=== PATIENT | female | born 1975 | race Native Hawaiian/Other Pacific Islander ===

== ENCOUNTER 2023-06-04 17:00 | Inpatient (IN) | payer OTHER ==
[2023-06-04] VITALS (8 sets, daily range): BP systolic 101–115; BP diastolic 53–66; PULSE 59–70; TEMP 97.6–98.4
[~2023-06-04] VITALS: Ht 175.3 cm; Wt 95.4 kg
[2023-06-04 18:26] LABS: BASO % 0.4 % (0.0-2.0); EOS # 0.1 K/mm3 (0.0-0.7); EOS % 2.5 % (0.0-4.0); LYMPH # 2.3 K/mm3 (1.2-3.4); LYMPH % 47.9 % (20.0-51.0); MEAN CELL VOLUME 57 fl (80.0-100.0); MEAN CORPUSCULAR HGB CONC 24 g/dl (33.0-37.0); MEAN PLATELET VOLUME 9.4 fl (7.4-10.4); MONO # 0.4 K/mm3 (0.1-0.6); PLATELET COUNT 399 K/mm3 (130-400); RED BLOOD COUNT 2.98 M/mm3 (4.10-5.30); REDCELL DISTRIBUTION WIDTH-CV 21.9 % (11.5-14.5)
[2023-06-04 18:30] LABS: MEAN CORPUSCULAR HEMOGLOBIN 13 pg (27-31)
[2023-06-04 19:11] LABS: ALBUMIN 3.5 g/dL (3.5-5.0); ALKALINE PHOSPHATASE 41 U/L (40-150); ANION GAP 7 mmol/L (7-16); AST,SGOT 14 U/L (5-34); BILIRUBIN,TOTAL 0.4 mg/dL (0.2-1.2); BLOOD UREA NITROGEN 9 mg/dL (7-19); CHLORIDE 111 mEq/L (98-107); CREATININE, serum 0.75 mg/dL (0.57-1.11); GLUCOSE 95 mg/dL (70-99); POTASSIUM 3.3 mEq/L (3.5-4.5); SODIUM 138 mEq/L (136-145); TOTAL PROTEIN 6.6 g/dl (6.2-8.1)
[2023-06-04 19:13] LABS: ALANINE AMINOTRANSFERASE < 6 U/L (0-55)
[2023-06-04 20:00] LABS: COLLECTION METHOD CLEAN CATCH
[2023-06-04] MEDS ORDERED: Acetaminophen 325 MG TAB PO PRN (20:00)
[2023-06-04] MEDS ORDERED: *Potassium Replacement Protocol MC SCH (20:00)
[2023-06-04] MEDS ORDERED: Potassium Bicarbonate/Citrate 20 MEQ Effervescent TAB PO SCH (20:00)
[2023-06-04 20:04] LABS: URINE APPEARANCE CLEAR (CLEAR/HAZY); URINE BLOOD NEGATIVE (NEGATIVE); URINE COLOR YELLOW (YELLOW); URINE GLUCOSE NEGATIVE (NEGATIVE); URINE KETONE NEGATIVE (NEGATIVE); URINE NITRATE NEGATIVE (NEGATIVE); URINE PROTEIN(semi-quant) NEGATIVE (NEGATIVE); URINE UROBILINOGEN 0.2 E.U/dL (0.2-1.0)
[2023-06-04] MEDS ORDERED: Ferrous Sulfate 325 MG TAB PO SCH (21:00)
[2023-06-05] VITALS (23 sets, daily range): BP systolic 94–128; BP diastolic 60–77; PULSE 55–70; TEMP 97.6–98.3
--- NOTE | 2023-06-05 00:32 | NUR ---
PT ARRIVED TO UNIT AROUND 2129 FROM ED, TRANSPORTED BY ED NURSE OBED WHO REPORTS HER TEMPURATURE WAS SLIGHTLY LOWERED FROM HER LAST SET OF VITALS. BLOOD GOING INFUSING IN L AC AT 125/HR. PT IS STABL WITH NO C/O PAIN, CHILLS, OR GARG . PT INITIALLY AT BEDSIDE FOR SUPPORT AND THEN WENT HOME TO BE WITH CHILDREN. PT IS ALERT AND ORIENTED, VERY CHEERFUL AND POSITIVE, GREAT HISTORIAN WHO REPORT SHE ATTRIBUTED HER SYMPTOMS OF THE LAST 8 MONTHS TO BE R/T WORK, LIFE AND STRESS. REPORTS EATING ICE CHIPS WHICH SHE KNOWS ARE A SIGN TO BE LOOKED INTO TO ADRESS KNOWN HX OF ANEMIA. NO SKIN ISSUES IS ABLE TO BEAR WEIGHT NORMALLY AND IS USED TO BEING INDEPENDANT AT HOME. THIS PT SECOND UNIT OF PRBC STARTED AT 0030. WILL REMAIN WITH PT AT BEDSIDE FOR 15 MINUTES TO OBSERVE FOR REACTION. CALL LIGHT WITHIN REACH. DENIES FURTHER NEED.
[2023-06-05 05:08] LABS: BASO # 0.1 K/mm3 (0.0-0.2); BASO % 1.2 % (0.0-2.0); EOS # 0.2 K/mm3 (0.0-0.7); GRAN # 2.3 K/mm3 (1.4-6.5); LYMPH % 40.3 % (20.0-51.0); MEAN CELL VOLUME 61 fl (80.0-100.0); MEAN CORPUSCULAR HGB CONC 27 g/dl (33.0-37.0); MEAN PLATELET VOLUME 9.2 fl (7.4-10.4); MONO # 0.5 K/mm3 (0.1-0.6); MONO % 9.3 % (1.7-9.3); PLATELET COUNT 419 K/mm3 (130-400); RED BLOOD COUNT 3.79 M/mm3 (4.10-5.30); REDCELL DISTRIBUTION WIDTH-CV 26.6 % (11.5-14.5)
[2023-06-05 05:17] LABS: HEMOGLOBIN 6.2 g/dl (12.5-16.0); MEAN CORPUSCULAR HEMOGLOBIN 16 pg (27-31)
[2023-06-05 05:20] LABS: CALCIUM 8.5 mg/dL (8.4-10.2); CREATININE, serum 0.82 mg/dL (0.57-1.11); POTASSIUM 4.1 mEq/L (3.5-4.5)
--- NOTE | 2023-06-05 06:26 | NUR ---
PT HBG 6.2, PROVIDER NOTIFIED. 1 UNIT RRBC ORDERED.
--- NOTE | 2023-06-05 08:26 | NUR ---
PATIENT SITTITNG UP IN BED UPON ENTERING ROOM. MORNING MEDICIATION ADMINISTERED. SHIFT ASSESSMENT COMPLETED. PATIENT DENIES ANY PAIN. TOLERATING BLOOD TRANSFUSION WELL. VITAL SIGNS STABLE. UPDATED ON PLAN OF CARE, ALL QUESTIONS ANSWERED. CALL LIGHT WITHIN REACH. WILL CONTINUE TO MONITOR.
[2023-06-05] MEDS ORDERED: Docusate Sodium 100 MG CAP PO SCH (10:05)
[2023-06-05] MEDS ORDERED: Polyethylene Glycol 3350 17 GM PDS PO PRN (10:15)
--- NOTE | 2023-06-05 10:48 | NUR ---
SW met with patient to complete intake. Patient provides she resides in [facility] with spouse aMrio [phone]. Patient provides she is independent with ADL's, does not utilize DME, nor home health services at this time. Patient provides she does not have a PCP and was provided local documentation to review and have choice of options. Current pharmacy utilized is [facility], and provides DPOA/HC is spouse. Patient states that she plans to return to her home upon discharge. SW will continue to follow. Discharge plan: home
--- NOTE | 2023-06-05 11:32 | NUR ---
Initial visit; Esther and her family were very sweet and receptive to Tank Truck Engine Mechanic looking in on her. Tank Truck Engine Mechanic offered God's blessings and wished her well as well as greeting all the 'kids'.
[2023-06-05] MEDS ORDERED: Ondansetron 4 MG/2 ML VIAL IV PRN (13:15)
[2023-06-05 13:19] LABS: HEMATOCRIT 29.1 % (37.0-47.0)
[2023-06-05] MEDS ORDERED: LR 1,000 ML IV SCH (14:00)
[2023-06-05] MEDS ORDERED: Bisacodyl 5 MG TAB PO SCH (17:00)
[2023-06-05] MEDS ORDERED: PEG3350/Sod Sulf,Bicarb,Cl/KCl Oral Soln 4,000 ML Bottle PO SCH (17:30)
[2023-06-05 20:34] LABS: HEMATOCRIT 25.7 % (37.0-47.0); HEMOGLOBIN 7.4 g/dl (12.5-16.0)
--- NOTE | 2023-06-05 23:29 | NUR ---
PT IS ALERT AND ORIENTED, DAUGHTER AT BEDSIDE. DR REILLY SPOKE WITH PT REGARDING COLONOSCOPY AND EGD PROCEDURE VIA PHONE CONVERSATION. PT HAS STARTED BOWEL PREP AND IS AGREEABLE TO HAVING PROCEDRES DONE. HGB IS 7.4, PROVIDER ARIEL DUMAS NOTIFIED. PT INDEPENDANT AND REQUESTING A SHOWER. DENIES FURTHER NEED.
[2023-06-06] VITALS (13 sets, daily range): BP systolic 92–121; BP diastolic 44–80; PULSE 44–67; TEMP 97.4–97.6
[2023-06-06 05:30] LABS: HEMATOCRIT 26.9 % (37.0-47.0); HEMOGLOBIN 7.7 g/dl (12.5-16.0)
[2023-06-06 05:37] LABS: CALCIUM 8.8 mg/dL (8.4-10.2); CREATININE, serum 0.79 mg/dL (0.57-1.11); POTASSIUM 3.8 mEq/L (3.5-4.5)
--- NOTE | 2023-06-06 07:39 | NUR ---
PER DR REILLY, PATIENTS OR TIME BUMPTED TO 11AM. PATIENT NOTIFIED.
[2023-06-06] MEDS ORDERED: Ondansetron 4 MG/2 ML VIAL IV PRN (10:30)
--- NOTE | 2023-06-06 11:30 | NUR ---
PATIENT ARRVIED FROM PACU IN STABLE CONDITION. NO NEED, PAIN OR COMPLAINTS AT THIS TIME. FALL PRECAUTIONS IN PLACE. CALL LIGHT WITHIN REACH.
[2023-06-06] MEDS ORDERED: FERRO-TIME325 MG PO (11:38)
[2023-06-06] MEDS ORDERED: PRENATAL TABLET PO (11:38)
[2023-06-06 13:30] LABS: HEMATOCRIT 26.7 % (37.0-47.0); HEMOGLOBIN 7.6 g/dl (12.5-16.0)
--- NOTE | 2023-06-06 14:30 | NUR ---
PATIENT KEEPS REMOVING BLOOD PRESSURE COUGH AND PULSE OX. ONLY 3 POST OP VITALS TAKEN.
--- NOTE | 2023-06-06 15:11 | NUR ---
PATRICIA GIVEN DISCHARGE INSTRUCTIONS AND EDUCATION. PATIENT AWAITING BLOOD TO COMPLETE.PATIENT VERBALIZES UNDERSTANDING OF FOLLOW UP APT NEEDED
--- NOTE | 2023-06-06 16:13 | NUR ---
BLOOD TRANFUSION COMPLETE. PATIENT TOLERATED WELL WITH NO S/S OF REACTION. PATEINT DENIES ANY NEEDS COMPLAINTS OR PAIN AT THIS TIME. BOTH IV RMEOVED. PER MD WE DO NOT NEED A RECHECK H&H PATIENT MAY DISCHARGE.. PATIENT TAKEN TO ER ENTRANCE WHERE SHE LEFT IN STABLE CONDITION WITH HER FAMILY.
== END 2023-06-06 16:16 | disposition home or self-care (01) | DRG 812 ==
LOC: COL.ER 17:00 → MEDICAL 19:57
PROVIDERS: Emergency Medicine; Internal Medicine; Nurse Practitioner Family; Surgery; ADMIT Internal Medicine
PROC: 30233N1 Transfusion of Nonautologous Red Blood Cells into Peripheral Vein, Percutaneous Approach (ICD-10-PCS; 2023-06-04)
PROC: 0DB78ZX Excision of Stomach, Pylorus, Via Natural or Artificial Opening Endoscopic, Diagnostic (ICD-10-PCS; principal; 2023-06-06 08:00)
PROC: 0DJD8ZZ Inspection of Lower Intestinal Tract, Via Natural or Artificial Opening Endoscopic (ICD-10-PCS; 2023-06-06 08:00)
DX: D50.0 Iron deficiency anemia secondary to blood loss (chronic) (principal); E87.20 Acidosis, unspecified; Q43.8 Other specified congenital malformations of intestine; E87.6 Hypokalemia; K29.50 Unspecified chronic gastritis without bleeding
CPT/HCPCS: J2405; J2704; P9016